=== PATIENT | male | born 1990 | race Two or more races ===

== ENCOUNTER → 2024-06-12 | Emergency (ER) | payer OTHER ==
[~2024-06-12] VITALS: Ht 162.6 cm; Wt 95.3 kg
[~2024-06-12] MED LIST: FAMOTIDINE/PF 20 MG in 0.9 % SODIUM CHLORIDE 8 ML IV PUSH STA; LOSARTAN POTASS25 MG PO
[2024-06-12 16:44] LABS: HEMATOCRIT 41.9 % (39.0-48.0); HEMOGLOBIN 13.6 g/dL (13-16.00); MEAN CELL VOLUME 75.9 fL (80.0-100.00); MEAN CORPUSCULAR HEMOGLOBIN 24.7 pg (27.00-32.0); MEAN CORPUSCULAR HGB CONC 32.5 g/dl (32.0-36.0); PLATELET COUNT 225 K/uL (150-450); RED BLOOD COUNT 5.53 M/uL (4.00-6.00); RED CELL DISTRIBUTION WIDTH 15.6 % (11.5-14.5)
[2024-06-12 17:04] LABS: ALBUMIN 3.7 gm/dL (3.4-5.0); BILIRUBIN TOTAL 0.67 mg/dL (0.3-1.2); CALCIUM 9.3 mg/dL (8.5-10.1); CREATININE SERUM 1.06 mg/dL (0.70-1.30); GFR 79.05; GLOBULINA 3.8 G/DL (2.4-3.5); POTASSIUM 4.04 mEq/L (3.5-5.1); TOTAL PROTEIN 7.5 gm/dL (6.4-8.2)
== END | disposition home or self-care (01) ==
LOC: ER 15:15
PROVIDERS: General Practice
DX: I10 Essential (primary) hypertension (principal); R42 Dizziness and giddiness; Z91.013 Allergy to seafood